=== PATIENT | female | born 1965 | race American Indian/Alaskan Native ===

== ENCOUNTER → 2016-11-22 | Outpatient (CLI) | payer OTHER ==
[~2016-11-22] MED LIST: HYDR25TA6 PO; INSU100V8 SQ; LOSA100T6 PO; METF500T4 PO
== END | disposition home or self-care (01) ==
LOC: CFH 07:47
PROVIDERS: ATTEND Nurse Practitioner Family
DX: Z12.31 Encounter for screening mammogram for malignant neoplasm of breast (principal)
CPT/HCPCS: 77063; G0202

== ENCOUNTER → 2016-11-27 | Outpatient (CLI) | payer OTHER ==
[2016-11-27 07:38] LABS: ASPARTATE AMINO TRANSFERASE 32 U/L (15-37); BLOOD UREA NITROGEN 16 mg/dL (7-18)
== END | disposition home or self-care (01) ==
LOC: LAB 07:01
PROVIDERS: ATTEND Nurse Practitioner Family
DX: E11.9 Type 2 diabetes mellitus without complications (principal)
CPT/HCPCS: 36415; 80053

== ENCOUNTER → 2016-11-29 | Outpatient (CLI) | payer OTHER ==
[~2016-11-29] MED LIST changes: +GADOBUTROL 10 MMOL/10 ML PFS ONE
== END | disposition home or self-care (01) ==
LOC: CFH 08:10
PROVIDERS: ATTEND Nurse Practitioner Family
DX: M47.892 Other spondylosis, cervical region (principal); R53.1 Weakness; M25.512 Pain in left shoulder; M79.602 Pain in left arm
CPT/HCPCS: 72156; A9585

== ENCOUNTER → 2017-02-24 | Outpatient (CLI) | payer OTHER ==
[~2017-02-24] MED LIST changes: -GADOBUTROL 10 MMOL/10 ML PFS ONE
[2017-02-24 08:06] LABS: BLOOD UREA NITROGEN 22 mg/dL (7-18)
[2017-02-24 08:15] LABS: ASPARTATE AMINO TRANSFERASE 35 U/L (15-37)
[2017-02-25 12:06] LABS: CREATININE URINE 120.7 mg/dL (Not Estab.)
== END | disposition home or self-care (01) ==
LOC: LAB 07:12
PROVIDERS: ATTEND Nurse Practitioner Family
DX: E11.9 Type 2 diabetes mellitus without complications (principal); I10 Essential (primary) hypertension; R53.83 Other fatigue; E55.9 Vitamin D deficiency, unspecified
CPT/HCPCS: 36415; 80053; 80061; 81003; 82043; 82306; 82570; 83036; 84439; 84443; 84480; 85025; 86376

== ENCOUNTER 2017-06-21 20:08 | Inpatient (IN) | payer OTHER ==
[~2017-06-21] VITALS: Ht 165.1 cm; Wt 100.7 kg
[2017-06-21] MEDS ORDERED: SODIUM CHLORIDE FLUSH 10ML SYR IVF ONE (21:00)
[2017-06-21] MEDS ORDERED: BENACAR (21:18)
[2017-06-21 21:31] LABS: HEMATOCRIT 41.1 % (34.6-47.8); HEMOGLOBIN 14.1 g/dL (11.7-16.4); WHITE BLOOD COUNT 8.7 x10^3/uL (3.4-10)
[2017-06-21 21:44] LABS: BLOOD UREA NITROGEN 14 mg/dL (7-18)
[2017-06-21] MEDS ORDERED: PIPERACILLIN/TAZO/PMX 3.375GM 50 ML ONE (22:55)
[2017-06-21] MEDS: ENOXAPARIN 40 MG/0.4 ML SQ SCH (23:00)
[2017-06-21] MEDS ORDERED: LORazepam 2 MG/ML, 1ML IVPush PRN (23:00)
[2017-06-21] MEDS ORDERED: ONDANSETRON 2MG/ML, 2ML IVPush PRN (23:00)
[2017-06-21] MEDS ORDERED: ACETAMINOPHEN 325 MG TABLET PO PRN (23:00)
[2017-06-21] MEDS ORDERED: hydrALAzine 20 MG/ML, 1ML IVPush PRN (23:00)
[2017-06-21] MEDS ORDERED: VANCOMYCIN PER PHARMACY MC PRN (23:00)
[2017-06-21] MEDS ORDERED: PIPERACILLIN/TAZO/PMX 3.375GM 50 ML IV ONE (23:00)
[2017-06-21 23:52] VITALS: BP 137/79
[2017-06-22] MEDS: HYDROmorphone 2 MG/ML, 1ML IVPush PRN ×2 (00:07→03:10)
[2017-06-22] MEDS: CLINDAMYCIN PMX 900MG/50ML 100 ML IV SCH ×4 (00:25→23:32)
[2017-06-22] MEDS ORDERED: OMNIPAQUE 350 MG/ML, 100ML BOTTLE ONE (02:49)
[2017-06-22 04:00] VITALS: BP 123/75
[2017-06-22 05:42] LABS: HEMOGLOBIN 13.2 g/dL (11.7-16.4); WHITE BLOOD COUNT 9.4 x10^3/uL (3.4-10)
[2017-06-22 06:44] VITALS: BP 119/71
[2017-06-22] MEDS: INSULIN ASPART 100 UNITS/ML, PEN SQ-INSULIN SCH ×4 (07:26→20:38)
[2017-06-22] MEDS: SODIUM CHLORIDE FLUSH 10ML SYR IVF SCH ×2 (08:21→20:38)
[2017-06-22] MEDS: PANTOPRAZOLE 40 MG IV IVPush SCH (08:21)
[2017-06-22] MEDS: SODIUM CHLORIDE 0.9% 1,000 ML IV SCH (10:58)
[2017-06-22 11:45] LABS: ASPARTATE AMINO TRANSFERASE 16 U/L (15-37); BLOOD UREA NITROGEN 13 mg/dL (7-18)
[2017-06-22] MEDS ORDERED: LIDOCAINE 1%, 20ML ONE (12:32)
[2017-06-22 13:13] VITALS: BP 105/68
[2017-06-22] MEDS ORDERED: FLUMAZENIL 0.1 MG/1 ML, 5ML ONE (13:16)
[2017-06-22] MEDS ORDERED: NALOXONE 1 MG/ML, 2ML ONE (13:16)
[2017-06-22] MEDS ORDERED: MIDAZOLAM 1 MG/ML, 5ML ONE (13:16)
[2017-06-22] MEDS ORDERED: FENTANYL PF 100 MCG/2ML ONE (13:16)
[2017-06-22] MEDS ORDERED: HYDROmorphone 2 MG/ML, 1ML IVPush PRN (19:00)
[2017-06-22 20:00] VITALS: BP 113/57
[2017-06-22] MEDS: ENOXAPARIN 40 MG/0.4 ML SQ SCH (23:31)
[2017-06-23 02:00] VITALS: BP 100/63
[2017-06-23] MEDS: SODIUM CHLORIDE 0.9% 1,000 ML IV SCH (03:14)
[2017-06-23 05:25] LABS: BLOOD UREA NITROGEN 11 mg/dL (7-18)
[2017-06-23 06:30] VITALS: BP 106/69
[2017-06-23] MEDS ORDERED: OXYcodone/APAP 5/325MG TABLET PO PRN (06:30)
[2017-06-23] MEDS: INSULIN ASPART 100 UNITS/ML, PEN SQ-INSULIN SCH ×4 (06:59→20:03)
[2017-06-23] MEDS: CLINDAMYCIN PMX 900MG/50ML 100 ML IV SCH ×2 (07:39→16:03)
[2017-06-23] MEDS: SODIUM CHLORIDE FLUSH 10ML SYR IVF SCH ×2 (07:39→20:04)
[2017-06-23] MEDS: PANTOPRAZOLE 40 MG IV IVPush SCH (07:39)
[2017-06-23 12:08] VITALS: BP 121/76
[2017-06-23 18:59] VITALS: BP 125/75
[2017-06-24] MEDS: ENOXAPARIN 40 MG/0.4 ML SQ SCH ×2 (00:13→23:41)
[2017-06-24] MEDS: CLINDAMYCIN PMX 900MG/50ML 100 ML IV SCH ×4 (00:13→23:41)
[2017-06-24 03:48] VITALS: BP 125/83
[2017-06-24 06:55] VITALS: BP 125/81
[2017-06-24] MEDS: INSULIN ASPART 100 UNITS/ML, PEN SQ-INSULIN SCH ×4 (07:00→19:47)
[2017-06-24] MEDS: PANTOPRAZOLE 40 MG IV IVPush SCH (08:21)
[2017-06-24] MEDS: SODIUM CHLORIDE FLUSH 10ML SYR IVF SCH ×2 (09:00→19:48)
[2017-06-24 13:00] VITALS: BP 122/80
[2017-06-24 20:14] VITALS: BP 136/81
[2017-06-25 02:19] VITALS: BP 105/68
[2017-06-25 06:37] LABS: HEMATOCRIT 39.2 % (34.6-47.8); HEMOGLOBIN 13.3 g/dL (11.7-16.4); WHITE BLOOD COUNT 5.9 x10^3/uL (3.4-10)
[2017-06-25 06:47] LABS: BLOOD UREA NITROGEN 8 mg/dL (7-18)
[2017-06-25 06:59] VITALS: BP 132/83
[2017-06-25] MEDS: INSULIN ASPART 100 UNITS/ML, PEN SQ-INSULIN SCH ×4 (07:00→21:00)
[2017-06-25 08:15] VITALS: BP 135/78
[2017-06-25] MEDS: CLINDAMYCIN PMX 900MG/50ML 100 ML IV SCH (09:19)
[2017-06-25] MEDS: SODIUM CHLORIDE FLUSH 10ML SYR IVF SCH ×2 (09:19→21:12)
[2017-06-25 12:53] VITALS: BP 146/81
[2017-06-25] MEDS: MEROPENEM 1 GM in SODIUM CHLORIDE 0.9% 100 ML IV SCH ×2 (14:45→21:12)
[2017-06-25] MEDS: CIPROFLOXACIN/PMX 400MG/200ML 200 ML IV SCH (15:39)
[2017-06-25 18:55] VITALS: BP 139/84
[2017-06-25] MEDS: ENOXAPARIN 40 MG/0.4 ML SQ SCH (23:21)
[2017-06-26] MEDS: CIPROFLOXACIN/PMX 400MG/200ML 200 ML IV SCH ×2 (01:55→14:15)
[2017-06-26 02:42] VITALS: BP 114/70
[2017-06-26] MEDS: MEROPENEM 1 GM in SODIUM CHLORIDE 0.9% 100 ML IV SCH ×3 (05:08→21:04)
[2017-06-26] MEDS: INSULIN ASPART 100 UNITS/ML, PEN SQ-INSULIN SCH ×4 (06:38→21:00)
[2017-06-26 07:43] VITALS: BP 119/72
[2017-06-26] MEDS: SODIUM CHLORIDE FLUSH 10ML SYR IVF SCH ×2 (08:39→21:04)
[2017-06-26 13:25] VITALS: BP 127/76
[2017-06-26 19:26] VITALS: BP 146/84
[2017-06-26] MEDS: ENOXAPARIN 40 MG/0.4 ML SQ SCH (23:08)
[2017-06-27 00:43] VITALS: BP 124/80
[2017-06-27] MEDS: CIPROFLOXACIN/PMX 400MG/200ML 200 ML IV SCH (02:01)
[2017-06-27] MEDS: MEROPENEM 1 GM in SODIUM CHLORIDE 0.9% 100 ML IV SCH (05:23)
[2017-06-27] MEDS: INSULIN ASPART 100 UNITS/ML, PEN SQ-INSULIN SCH ×4 (06:35→21:00)
[2017-06-27 07:50] VITALS: BP 134/81
[2017-06-27] MEDS: LOPERAMIDE 2 MG CAPSULE PO PRN (08:45)
[2017-06-27] MEDS: SODIUM CHLORIDE FLUSH 10ML SYR IVF SCH ×2 (08:45→21:00)
[2017-06-27] MEDS: PIPERACILLIN/TAZO/PMX 3.375GM 50 ML IV SCH ×2 (12:10→17:50)
[2017-06-27] MEDS ORDERED: LIDOCAINE 1%, 20ML ONE (12:28)
[2017-06-27 13:08] VITALS: BP 138/94
[2017-06-27 20:40] VITALS: BP 131/72
[2017-06-27] MEDS: ENOXAPARIN 40 MG/0.4 ML SQ SCH (23:00)
[2017-06-28] MEDS: PIPERACILLIN/TAZO/PMX 3.375GM 50 ML IV SCH ×5 (00:20→23:31)
[2017-06-28 02:09] VITALS: BP 108/68
[2017-06-28] MEDS: INSULIN ASPART 100 UNITS/ML, PEN SQ-INSULIN SCH ×5 (07:00→21:00)
[2017-06-28 07:18] VITALS: BP 119/75
[2017-06-28] MEDS ORDERED: FENTANYL PF 100 MCG/2ML ONE (11:23)
[2017-06-28] MEDS ORDERED: MIDAZOLAM 1 MG/ML, 5ML ONE (11:24)
[2017-06-28] MEDS ORDERED: LIDOCAINE 1%, 20ML ONE (11:24)
[2017-06-28] MEDS ORDERED: NALOXONE 1 MG/ML, 2ML ONE (11:24)
[2017-06-28] MEDS ORDERED: FLUMAZENIL 0.1 MG/1 ML, 5ML ONE (11:24)
[2017-06-28] MEDS ORDERED: VISIPAQUE 320MG/ML, 50ML BOTTLE ONE (12:23)
[2017-06-28] MEDS: SODIUM CHLORIDE FLUSH 10ML SYR IVF SCH ×2 (12:37→21:17)
[2017-06-28 13:59] VITALS: BP 138/87
[2017-06-28 18:42] VITALS: BP 125/79
[2017-06-28] MEDS: LACTOBACILLUS CHEW TABLET PO SCH (21:16)
[2017-06-28] MEDS: ENOXAPARIN 40 MG/0.4 ML SQ SCH (23:31)
[2017-06-29 01:40] VITALS: BP 106/67
[2017-06-29] MEDS: INSULIN ASPART 100 UNITS/ML, PEN SQ-INSULIN SCH ×4 (06:04→20:05)
[2017-06-29] MEDS: LACTOBACILLUS CHEW TABLET PO SCH ×4 (06:19→20:05)
[2017-06-29] MEDS: PIPERACILLIN/TAZO/PMX 3.375GM 50 ML IV SCH ×4 (06:20→23:51)
[2017-06-29 06:51] VITALS: BP 120/75
[2017-06-29] MEDS: SODIUM CHLORIDE FLUSH 10ML SYR IVF SCH ×2 (11:51→20:05)
[2017-06-29 13:20] VITALS: BP 130/77
[2017-06-29] MEDS ORDERED: LORazepam 2 MG/ML, 1ML IVPush PRN (16:30)
[2017-06-29] MEDS ORDERED: ONDANSETRON 2MG/ML, 2ML IVPush PRN (16:30)
[2017-06-29] MEDS ORDERED: ACETAMINOPHEN 325 MG TABLET PO PRN (16:30)
[2017-06-29 19:58] VITALS: BP 113/64
[2017-06-29] MEDS: LOPERAMIDE 2 MG CAPSULE PO PRN (20:05)
[2017-06-29] MEDS: ENOXAPARIN 40 MG/0.4 ML SQ SCH (23:51)
[2017-06-30 02:16] VITALS: BP 117/77
[2017-06-30] MEDS: PIPERACILLIN/TAZO/PMX 3.375GM 50 ML IV SCH ×2 (05:32→12:20)
[2017-06-30] MEDS: LACTOBACILLUS CHEW TABLET PO SCH ×3 (05:32→16:26)
[2017-06-30 05:42] LABS: HEMATOCRIT 39.8 % (34.6-47.8); HEMOGLOBIN 13.4 g/dL (11.7-16.4); WHITE BLOOD COUNT 7.4 x10^3/uL (3.4-10)
[2017-06-30 06:03] LABS: ASPARTATE AMINO TRANSFERASE 18 U/L (15-37); BLOOD UREA NITROGEN 10 mg/dL (7-18)
[2017-06-30 06:38] VITALS: BP 126/71
[2017-06-30] MEDS: INSULIN ASPART 100 UNITS/ML, PEN SQ-INSULIN SCH ×3 (07:00→16:00)
[2017-06-30] MEDS: SODIUM CHLORIDE FLUSH 10ML SYR IVF SCH (09:00)
[2017-06-30] MEDS: LOPERAMIDE 2 MG CAPSULE PO PRN (10:13)
[2017-06-30 14:02] VITALS: BP 128/78
[2017-06-30] MEDS ORDERED: CEFD300C37 PO (15:50)
[2017-06-30] MEDS ORDERED: AMOX1TAB64 PO (15:50)
[2017-06-30] MEDS ORDERED: ACID1TAB7 PO (15:50)
[2017-06-30 16:41] VITALS: BP 152/90
== END 2017-06-30 16:50 | disposition home or self-care (01) | DRG 920 ==
LOC: ED 20:39 → EDIP 22:55 → 4NOR 23:28
PROVIDERS: ADMIT Internal Medicine; ATTEND Internal Medicine
PROC: 0W9F30Z Drainage of Abdominal Wall with Drainage Device, Percutaneous Approach (ICD-10-PCS; principal; 2017-06-22)
PROC: 0W2FX0Z Change Drainage Device in Abdominal Wall, External Approach (ICD-10-PCS; 2017-06-28)
DX: K91.872 Postprocedural seroma of a digestive system organ or structure following a digestive system procedure (principal); L03.311 Cellulitis of abdominal wall; E11.9 Type 2 diabetes mellitus without complications; M79.3 Panniculitis, unspecified; Y83.8 Other surgical procedures as the cause of abnormal reaction of the patient, or of later complication, without mention of misadventure at the time of the procedure; E66.9 Obesity, unspecified; G89.18 Other acute postprocedural pain; I10 Essential (primary) hypertension; Z68.36 Body mass index [BMI] 36.0-36.9, adult
CPT/HCPCS: 36415; 49405; 49423; 74176; 74177; 75984; 75989; 76942; 80048; 80053; 82040; 82962; 83735; 85025; 85610; 87040; 87070; 87075; 87076; 87077; 87186; 87205; 87324; 99156; 99157; 99285; J0744; J1170; J1650; J1815; J2185; J2250; J2543; J3010; J3490; Q9967; C1729; C1769; C9113; J2310; J7030

== ENCOUNTER → 2017-08-13 | Outpatient (CLI) | payer OTHER ==
[~2017-08-13] MED LIST changes: +ACID1TAB7 PO; +AMOX1TAB64 PO; +BENACAR; +CEFD300C37 PO
== END | disposition home or self-care (01) ==
LOC: RAD 06:55
PROVIDERS: ATTEND Nurse Practitioner Family
DX: L02.216 Cutaneous abscess of umbilicus (principal)
CPT/HCPCS: 74176

== ENCOUNTER → 2018-03-27 | Outpatient (CLI) | payer OTHER ==
[~2018-03-27] MED LIST changes: -METF500T4 PO; +METF500T5 PO
== END ==
LOC: WOUND 07:43
PROVIDERS: ATTEND Internal Medicine
DX: Z02.9 Encounter for administrative examinations, unspecified (principal)

== ENCOUNTER → 2018-04-03 | Outpatient (CLI) | payer OTHER | END | disposition home or self-care (01) | LOC: WOUND 07:46 | PROVIDERS: ATTEND Family Medicine | DX: E11.622 Type 2 diabetes mellitus with other skin ulcer (principal); L98.491 Non-pressure chronic ulcer of skin of other sites limited to breakdown of skin; E66.2 Morbid (severe) obesity with alveolar hypoventilation; I10 Essential (primary) hypertension; Z68.36 Body mass index [BMI] 36.0-36.9, adult; Z90.710 Acquired absence of both cervix and uterus | CPT/HCPCS: 99213 ==

== ENCOUNTER → 2018-04-06 | Outpatient (CLI) | payer OTHER ==
[~2018-04-06] MED LIST changes: +ALPR0.5T6 PO; +DAPA10TA PO; -LOSA100T6 PO; +LOSA100T7 PO; +METF500T17 PO; -METF500T5 PO; +OLME5TAB4 PO
== END | disposition home or self-care (01) ==
LOC: WOUND 07:39
PROVIDERS: ATTEND Internal Medicine
DX: E11.622 Type 2 diabetes mellitus with other skin ulcer (principal); L98.491 Non-pressure chronic ulcer of skin of other sites limited to breakdown of skin; I10 Essential (primary) hypertension; E66.2 Morbid (severe) obesity with alveolar hypoventilation
CPT/HCPCS: 99213

== ENCOUNTER → 2018-04-08 | Outpatient (CLI) | payer OTHER | END | disposition home or self-care (01) | LOC: WOUND 07:51 | PROVIDERS: ATTEND Internal Medicine | DX: E11.622 Type 2 diabetes mellitus with other skin ulcer (principal); L98.491 Non-pressure chronic ulcer of skin of other sites limited to breakdown of skin; M17.12 Unilateral primary osteoarthritis, left knee; I10 Essential (primary) hypertension; E66.2 Morbid (severe) obesity with alveolar hypoventilation; Z68.36 Body mass index [BMI] 36.0-36.9, adult; Z90.710 Acquired absence of both cervix and uterus | CPT/HCPCS: 99212 ==

== ENCOUNTER → 2018-04-10 | Outpatient (CLI) | payer OTHER ==
[~2018-04-10] MED LIST changes: -ALPR0.5T6 PO; -DAPA10TA PO; +LOSA100T6 PO; -LOSA100T7 PO; -METF500T17 PO; +METF500T5 PO; -OLME5TAB4 PO
== END | disposition home or self-care (01) ==
LOC: WOUND 07:46
PROVIDERS: ATTEND Family Medicine
DX: E11.622 Type 2 diabetes mellitus with other skin ulcer (principal); L98.491 Non-pressure chronic ulcer of skin of other sites limited to breakdown of skin; E66.2 Morbid (severe) obesity with alveolar hypoventilation; I10 Essential (primary) hypertension; Z68.36 Body mass index [BMI] 36.0-36.9, adult; Z90.710 Acquired absence of both cervix and uterus
CPT/HCPCS: 99213

== ENCOUNTER → 2018-04-17 | Outpatient (CLI) | payer OTHER | END | disposition home or self-care (01) | LOC: WOUND 13:15 | PROVIDERS: ATTEND Family Medicine | DX: E11.622 Type 2 diabetes mellitus with other skin ulcer (principal); L98.491 Non-pressure chronic ulcer of skin of other sites limited to breakdown of skin; I10 Essential (primary) hypertension; E66.2 Morbid (severe) obesity with alveolar hypoventilation; Z68.36 Body mass index [BMI] 36.0-36.9, adult; Z90.710 Acquired absence of both cervix and uterus | CPT/HCPCS: 99213 ==

== ENCOUNTER → 2018-04-24 | Outpatient (CLI) | payer OTHER | END | disposition home or self-care (01) | LOC: WOUND 07:45 | PROVIDERS: ATTEND Family Medicine | DX: E11.622 Type 2 diabetes mellitus with other skin ulcer (principal); L98.498 Non-pressure chronic ulcer of skin of other sites with other specified severity; E66.2 Morbid (severe) obesity with alveolar hypoventilation; I10 Essential (primary) hypertension; Z68.36 Body mass index [BMI] 36.0-36.9, adult; Z90.710 Acquired absence of both cervix and uterus | CPT/HCPCS: 99214 ==

== ENCOUNTER → 2018-05-08 | Outpatient (CLI) | payer OTHER ==
[~2018-05-08] MED LIST changes: -LOSA100T6 PO; +LOSA100T7 PO; +METF500T17 PO; -METF500T5 PO
== END | disposition home or self-care (01) ==
LOC: WOUND 08:06
PROVIDERS: ATTEND Family Medicine
DX: E11.622 Type 2 diabetes mellitus with other skin ulcer (principal); L98.498 Non-pressure chronic ulcer of skin of other sites with other specified severity; E66.2 Morbid (severe) obesity with alveolar hypoventilation; I10 Essential (primary) hypertension; Z68.36 Body mass index [BMI] 36.0-36.9, adult; Z90.710 Acquired absence of both cervix and uterus
CPT/HCPCS: 99213

== ENCOUNTER → 2018-05-15 | Outpatient (CLI) | payer OTHER ==
[~2018-05-15] MED LIST changes: +ALPR0.5T6 PO; +DAPA10TA PO; +OLME5TAB4 PO
== END | disposition home or self-care (01) ==
LOC: WOUND 08:00
PROVIDERS: ATTEND Family Medicine
DX: E11.622 Type 2 diabetes mellitus with other skin ulcer (principal); L98.491 Non-pressure chronic ulcer of skin of other sites limited to breakdown of skin; I10 Essential (primary) hypertension; M17.12 Unilateral primary osteoarthritis, left knee; E66.2 Morbid (severe) obesity with alveolar hypoventilation; Z68.36 Body mass index [BMI] 36.0-36.9, adult; Z90.710 Acquired absence of both cervix and uterus
CPT/HCPCS: 99214

== ENCOUNTER → 2018-05-15 | Outpatient (CLI) | payer OTHER ==
[~2018-05-15] MED LIST changes: -ALPR0.5T6 PO; -DAPA10TA PO; -OLME5TAB4 PO
== END | disposition home or self-care (01) ==
LOC: CFH 07:20
PROVIDERS: ATTEND Nurse Practitioner Family
DX: M17.12 Unilateral primary osteoarthritis, left knee (principal)

== ENCOUNTER 2018-05-21 08:27 | Emergency (ER) | payer OTHER ==
[~2018-05-21] VITALS: Ht 165.1 cm; Wt 97.7 kg
[2018-05-21] MEDS ORDERED: OLME5TAB4 PO (08:43)
[2018-05-21] MEDS ORDERED: ALPR0.5T6 PO (08:43)
[2018-05-21] MEDS ORDERED: DAPA10TA PO (08:43)
[2018-05-21] MEDS ORDERED: ONDANSETRON ODT 4 MG ONE (08:58)
[2018-05-21] MEDS ORDERED: FAMOTIDINE 20 MG/2 ML ONE (08:58)
[2018-05-21] MEDS ORDERED: SODIUM CHLORIDE 0.9% 1,000ML IVBOLUS ONE (09:00)
[2018-05-21] MEDS ORDERED: ONDANSETRON ODT 4 MG PO ONE (09:00)
[2018-05-21] MEDS ORDERED: FAMOTIDINE 20 MG/2 ML IVP ONE (09:00)
[2018-05-21 09:07] LABS: BASOPHILS # (AUTO) 0.02 x10^3/uL (0-0.1); BASOPHILS % (AUTO) 0 % (0-1); EOSINOPHILS # (AUTO) 0.08 x10^3/uL (0-0.4); EOSINOPHILS % (AUTO) 2 % (1-7); LYMPHOCYTES # (AUTO) 2.32 x10^3/uL (1-3.4); LYMPHOCYTES % (AUTO) 46 % (22-44); MD NO; MEAN CORPUSCULAR HGB CONC 34.5 g/dL (32.4-35.8); MEAN CORPUSCULAR VOLUME 89.7 fL (80-100); MEAN PLATELET VOLUME 8.4 fL (7.4-10.4); MONOCYTES # (AUTO) 0.32 x10^3/uL (0.2-0.8); MONOCYTES % (AUTO) 6 % (2-9); NEUTROPHILS # (AUTO) 2.26 x10^3/uL (1.8-6.8); NEUTROPHILS % (AUTO) 45 % (42-75); PLATELET COUNT 218 x10^3/uL (130-400); RED BLOOD COUNT 5.31 x10^6/uL (3.82-5.3); RED CELL DISTRIBUTION WIDTH 12.9 % (9.6-15.2)
[2018-05-21 09:15] LABS: ALANINE AMINOTRANSFERASE 65 U/L (12-78); ANION GAP 5 mmol/L (5-15); CALCIUM 9.5 mg/dL (8.5-10.1); CHLORIDE 105 mmol/L (98-107)
[2018-05-21 09:18] LABS: ALKALINE PHOSPHATASE 103 U/L (45-117); BILIRUBIN,TOTAL 0.4 mg/dL (0.2-1.0); TOTAL PROTEIN 7.8 g/dL (6.4-8.2)
[2018-05-21 09:51] LABS: MICROSCOPIC NOT IND
[2018-05-21] MEDS ORDERED: SODIUM CHLORIDE 0.9% 1,000 ML IV ONE (10:00)
[2018-05-21 10:11] VITALS: BP 140/80
[2018-05-21 10:12] LABS: CULTURE INDICATED? NO
== END 2018-05-21 11:12 | disposition home or self-care (01) ==
LOC: ED 09:38
DX: K29.00 Acute gastritis without bleeding (principal); I10 Essential (primary) hypertension; E11.9 Type 2 diabetes mellitus without complications
CPT/HCPCS: 36415; 74022; 76700; 80053; 81003; 83690; 85025; 96361; 96374; 99285; J7030; Q0162; S0028

== ENCOUNTER → 2018-05-22 | Outpatient (CLI) | payer OTHER ==
[~2018-05-22] MED LIST changes: +ALPR0.5T6 PO; +DAPA10TA PO; +OLME5TAB4 PO
== END | disposition home or self-care (01) ==
LOC: WOUND 08:00
PROVIDERS: ATTEND Family Medicine
DX: E11.622 Type 2 diabetes mellitus with other skin ulcer (principal); L98.491 Non-pressure chronic ulcer of skin of other sites limited to breakdown of skin; I10 Essential (primary) hypertension; M17.12 Unilateral primary osteoarthritis, left knee; E66.2 Morbid (severe) obesity with alveolar hypoventilation; Z68.36 Body mass index [BMI] 36.0-36.9, adult; Z90.710 Acquired absence of both cervix and uterus
CPT/HCPCS: 99213

== ENCOUNTER → 2018-05-29 | Outpatient (CLI) | payer OTHER | END | disposition home or self-care (01) | LOC: WOUND 08:00 | PROVIDERS: ATTEND Family Medicine | DX: E11.622 Type 2 diabetes mellitus with other skin ulcer (principal); L98.491 Non-pressure chronic ulcer of skin of other sites limited to breakdown of skin; E66.2 Morbid (severe) obesity with alveolar hypoventilation; I10 Essential (primary) hypertension; M17.12 Unilateral primary osteoarthritis, left knee; Z90.710 Acquired absence of both cervix and uterus; Z68.36 Body mass index [BMI] 36.0-36.9, adult | CPT/HCPCS: 99213 ==

== ENCOUNTER → 2018-06-10 | Outpatient (CLI) | payer OTHER | END | disposition home or self-care (01) | LOC: WOUND 07:57 | PROVIDERS: ATTEND Internal Medicine | DX: E11.622 Type 2 diabetes mellitus with other skin ulcer (principal); L98.491 Non-pressure chronic ulcer of skin of other sites limited to breakdown of skin; I10 Essential (primary) hypertension; M17.12 Unilateral primary osteoarthritis, left knee; E66.2 Morbid (severe) obesity with alveolar hypoventilation; Z68.36 Body mass index [BMI] 36.0-36.9, adult; Z90.710 Acquired absence of both cervix and uterus | CPT/HCPCS: 97597 ==

== ENCOUNTER → 2018-07-03 | Outpatient (CLI) | payer OTHER | END | disposition home or self-care (01) | LOC: WOUND 08:00 | PROVIDERS: ATTEND Family Medicine | DX: E11.622 Type 2 diabetes mellitus with other skin ulcer (principal); L98.498 Non-pressure chronic ulcer of skin of other sites with other specified severity; I10 Essential (primary) hypertension; M17.12 Unilateral primary osteoarthritis, left knee; E66.2 Morbid (severe) obesity with alveolar hypoventilation; Z68.36 Body mass index [BMI] 36.0-36.9, adult; Z90.710 Acquired absence of both cervix and uterus | CPT/HCPCS: 99214 ==

== ENCOUNTER → 2018-07-10 | Outpatient (CLI) | payer OTHER | END | disposition home or self-care (01) | LOC: CFH 07:40 | PROVIDERS: ATTEND Nurse Practitioner Family | DX: M19.072 Primary osteoarthritis, left ankle and foot (principal); M19.071 Primary osteoarthritis, right ankle and foot; M20.12 Hallux valgus (acquired), left foot; M20.11 Hallux valgus (acquired), right foot ==